=== PATIENT | female | born 1965 | race Caucasian/White ===

== ENCOUNTER 2021-11-06 06:59 | Outpatient (CLI) | payer BC, SELFPAY ==
--- NOTE | 2021-11-06 07:15 | US_ITS ---
Final Report Patient: ANTHONY ROSEN Facility:?[facility] Patient ID:?[id number] Site Patient ID:?[id number]. Site :?[id number] Study:?US Pelvis -11/06/2021 7:53:49 AM Ordering Physician:Delonte Morataya Final Report: INDICATION: Painful intercourse, history of endometrial ablation. TECHNIQUE: Ultrasound pelvis transvaginal for better assessment or to better visualize the endometrium. Real-time sonographic images with spectral and color Doppler imaging of the ovaries were obtained. COMPARISON: None. FINDINGS: Uterus: 6.1 x 5.0 x 3.3 cm. Normal echotexture of the myometrium. 1.3 x 1.5 x 1.5 cm posterior uterine fundal intramural mass. Endometrium: Transvaginal imaging was performed to better evaluate the endometrium. Endometrial thickness measures 4 mm. No sign of endometrial mass or fluid. Right ovary measures 1.1 x 1.2 x 1.0 cm. Left ovary is not visualized. No ovarian or adnexal masses. Normal blood flow in the right ovary. Cul-de-sac: No significant free fluid. IMPRESSION: 1. Endometrium measures 4 mm. 2. Left ovary is not visualized. No adnexal lesions. 3. Posterior fundal 1.5 cm intramural mass most likely leiomyoma. Dictated by Dustin Branch MD @ 11/06/2021 8:39:17 AM (Electronic Signature)
== END 2021-11-06 07:00 | disposition home or self-care (01) ==
LOC: US 07:01
PROVIDERS: PCP Family Medicine; Visit Provider Obstetrics & Gynecology
DX: N94.10 Unspecified dyspareunia (principal); R93.89 Abnormal findings on diagnostic imaging of other specified body structures; R19.00 Intra-abdominal and pelvic swelling, mass and lump, unspecified site
CPT/HCPCS: 76830; 76856

== ENCOUNTER 2021-12-26 08:04 | Outpatient (CLI) | payer BC, SELFPAY | END 2021-12-26 08:05 | disposition home or self-care (01) | LOC: OP CLINIC 08:05 | PROVIDERS: PCP Family Medicine; Visit Provider Surgery | DX: Z12.11 Encounter for screening for malignant neoplasm of colon (principal); K64.4 Residual hemorrhoidal skin tags; Z83.71 Family history of colonic polyps | CPT/HCPCS: 45378; 99153; J1200; J2250; J2405; J3010 ==

== ENCOUNTER 2021-12-27 10:49 | Outpatient (CLI) | payer BC, SELFPAY ==
--- NOTE | 2021-12-27 11:15 | CRLHL7_ITS ---
For Patients: As a result of the Century Cures Act, medical imaging exams and procedure reports are released immediately into your electronic medical record. You may view this report before your referring provider. If you have questions, please contact your health care provider. Technique: Double contrast barium enema performed in routine fashion. Fluoroscopy time 4 minutes 16 seconds.. Indication: Failed colonoscopy Comparison: None. Findings: Sigmoid diverticulosis with luminal narrowing. No stricture or obstruction. No mucosal irregularity or mass. Normal appearance of the right colon and transverse colon. Some redundancy of the splenic flexure incidentally identified. No fistula. No extravasation. Impression: Sigmoid diverticulosis. Remainder normal. Dictated by Eligio De Leon MD @ 12/27/2021 2:10:38 PM (Electronically Signed)
== END 2021-12-27 10:50 | disposition home or self-care (01) ==
PROVIDERS: PCP Family Medicine; Visit Provider Surgery
DX: Z12.11 Encounter for screening for malignant neoplasm of colon (principal); K57.30 Diverticulosis of large intestine without perforation or abscess without bleeding
CPT/HCPCS: 74280

== ENCOUNTER 2022-01-21 17:44 | Outpatient (CLI) | payer BC, SELFPAY ==
--- NOTE | 2022-01-21 18:00 | CRLHL7_ITS ---
For Patients: As a result of the Century Cures Act, medical imaging exams and procedure reports are released immediately into your electronic medical record. You may view this report before your referring provider. If you have questions, please contact your health care provider. BILATERAL SCREENING MAMMOGRAM WITH COMPUTER-AIDED DETECTION TECHNIQUE: CC and MLO views were obtained. These mammographic images have been obtained using full-field digital technique. These mammographic images were interpreted with the benefit of computer-aided detection. COMPARISON FILM: 09/08/19, 07/02/15. FINDINGS: The breasts are extremely dense, which lowers the sensitivity of mammography IMPRESSION: There is no radiographic evidence for malignancy. ASSESSMENT: BI-RADS Category 2: Benign RECOMMENDATION: Routine screening mammogram in 1 year. A lay language report of this examination will be provided to the patient. Eligio De Leon M.D. Diagnostic Radiologist [email or web address] SAURAV/Dictated by: Eligio De Leon MD @ 01/22/2022 8:21:00 AM (Electronically Signed)
== END 2022-01-21 17:45 | disposition home or self-care (01) ==
LOC: MAMMO 17:46
PROVIDERS: PCP Family Medicine; Visit Provider Registered Nurse
DX: Z12.31 Encounter for screening mammogram for malignant neoplasm of breast (principal); R92.2 Inconclusive mammogram
CPT/HCPCS: 77063; 77067

== ENCOUNTER 2022-06-29 13:33 | Emergency (ER) | payer BC, SELFPAY ==
[2022-06-29] VITALS (13 sets, daily range): BP systolic 139–175; BP diastolic 77–100; PULSE 64–72; RESP 18; TEMP 36.7; O2SAT 98–100; BMI 21.4
--- NOTE | 2022-06-29 14:45 | CRLHL7_ITS ---
For Patients: As a result of the Cures Act, medical imaging exams and procedure reports are released immediately into your electronic medical record. You may view this report before your referring provider. If you have questions, please contact your health care provider. Indication: Pain and throbbing in the skullbase and. TECHNIQUE: Three views of the cervical spine. FINDINGS: No cervical spine fracture, dislocation, or prevertebral soft tissue swelling. Mild spondylosis at C4-5 and C5-6. Slight diffuse facet arthrosis. Otherwise normal. Dictated by Christiano Krishna MD @ 06/29/2022 5:19:23 PM (Electronically Signed)
--- NOTE | 2022-06-29 14:46 | CRLHL7_ITS ---
For Patients: As a result of the Century Cures Act, medical imaging exams and procedure reports are released immediately into your electronic medical record. You may view this report before your referring provider. If you have questions, please contact your health care provider. INDICATION: Chest pain. TECHNIQUE: PA and lateral chest. COMPARISON: 06/21/2019. FINDINGS: Lungs are clear. Normal heart size and pulmonary vascularity. No pleural effusion. No pneumothorax. Right upper quadrant surgical clips. No change since prior exam. IMPRESSION: No acute chest findings. Dictated by Christiano Krishna MD @ 06/29/2022 5:20:21 PM (Electronically Signed)
--- NOTE | 2022-06-29 14:47 | CRLHL7_ITS ---
For Patients: As a result of the Century Cures Act, medical imaging exams and procedure reports are released immediately into your electronic medical record. You may view this report before your referring provider. If you have questions, please contact your health care provider. INDICATION: Headache TECHNIQUE: CT head without contrast. COMPARISON: None. FINDINGS: CSF spaces: Within normal limits for age. Brain parenchyma and extra-axial spaces: The barber-white differentiation is normal. No sign of mass, hemorrhage, or midline shift. No extra-axial fluid collection. Skull base and calvarium: The visualized paranasal sinuses and mastoid air cells demonstrate no acute or significant findings. The visualized orbits are grossly unremarkable. No skull fractures. IMPRESSION: Unremarkable noncontrast head CT. Please note that all CT scans at this facility use dose modulation, iterative reconstruction, and/or weight-based dosing when appropriate to reduce radiation dose to as low as reasonably achievable. Dictated by Christiano Krishna MD @ 06/29/2022 4:59:42 PM (Electronically Signed)
--- NOTE | 2022-06-29 14:57 | ED_ITS ---
HPI - Chest Pain General Date Seen: 06/29/22 Chief Complaint: Unspecified Complaint, Adult Stated Complaint: Feels like somethings stuck in throat dizzy Time Seen by Provider: 06/29/22 13:58 Source: patient Mode of arrival: ambulatory Limitations: no limitations History of Present Illness HPI narrative: Patient is a 57-year-old female presents here for evaluation of chest pain and back upper neck pain. She has had this on off for the last 3 days, describes pain across her chest, this occurs at rest but also when she moves around. She has not really been able to get any relief with this. This even wakes her from sleep at night, she saw cardiology this week, actually had a regular stress test which she went 9 minutes and stop because of some right knee discomfort she had. She denies any chest pain associated with this, shortness of breath, she works as a head of merchandise buying, and exercises it least 5 days a week. Running approximately 20 minutes on the treadmill. Along with at least 30 minutes twice daily of aerobic/weight lifting. No past personal history of cardiac disease although she feels she might have hypertension now as her blood pressure early systolic is always elevated here in the last little while. She has a terrible family history of multiple family members having heart attacks at an early age both her brother and her father. She thinks her cholesterol is elevated also. She denies a problems swallowing says she is able eat and drink normally. No history of diabetes no history of smoking, no history of drug use or alcohol use. MD complaint: chest pain and chest heaviness Prior episodes: Yes Onset: during rest and during exertion Pain location: left chest and right chest Pain radiation: back and neck Severity: moderate Quality: tightness Treatment prior to arrival: none Risk Factors Coronary artery disease risk factors: hypertension and family history of CAD before age 50 Related Data On Oral Contraceptives: No Home Medications Medication Instructions Recorded Confirmed No Known Home Medications 06/29/22 06/29/22 Allergies Allergy/AdvReac Type Severity Reaction Status Date / Time rivaroxaban Allergy Severe Multiple Verified 06/29/22 14:18 reactions cortisone Allergy Intermediate Heart Verified 06/29/22 14:18 palpitations, bp drop aspirin Allergy Mild Rash Verified 06/29/22 14:18 Sulfa (Sulfonamide Allergy Mild Hives Verified 06/29/22 14:18 Antibiotics) Review of Systems Status of ROS Reports: 10 or more systems reviewed and unremarkable except as noted in History and below PFSH PFSH Surgical History History of appendectomy (1996) History of cholecystectomy (1991) History of rotator cuff surgery Status post carpal tunnel release Status post trigger finger release Family History Other MCTD (mixed connective tissue disease) Social History Smoking Status: Never smoker How often do you have a drink containing alcohol: 4 or more times a week AUDIT-C Alcohol total score: 4 Non-prescribed substance use: denies use Exam Narrative Exam Narrative: I find a nice lady in room 2 as just a little bit of pressured speech, her pupils are equal round reactive to light there is no scleral icterus redness or TMs are normal, her neck has excellent range of motion from within 4 cm to 22 cm, however in full extension she complains of pain in her neck, specifically along the paraspinal muscles along spinous processes in the mid cervical so spine. Chest is good air entry bilaterally with no wheezing crackles noted her heart sounds are normal there is no clicks murmurs or gallops her abdomen is soft there is no guarding no organomegaly, no tenderness to palpation no CVA tenderness she moves all extremities independently and well, with absence of swelling of her legs, scar on her right elbow from previous ulnar transposition, she also tells me she had a blood clot in her right arm. Const Vital Signs, click to edit/add: Vital Signs - 24 hr 06/29/22 14:15 06/29/22 15:54 06/29/22 15:29 Temperature 98.0 F Pulse Rate 68 Pulse Rate [Right Pulse Oximeter] 72 69 Respiratory Rate 18 18 Blood Pressure Blood Pressure [Left Upper Arm] 175/100 H 156/89 H Pulse Oximetry 99 100 100 Oxygen Delivery Method Room Air Room Air 06/29/22 15:30 06/29/22 15:53 06/29/22 16:00 Temperature Pulse Rate 66 68 67 Pulse Rate [Right Pulse Oximeter] Respiratory Rate Blood Pressure 156/89 H Blood Pressure [Left Upper Arm] Pulse Oximetry 99 98 100 Oxygen Delivery Method 06/29/22 16:02 06/29/22 16:03 06/29/22 16:30 Temperature Pulse Rate 64 69 70 Pulse Rate [Right Pulse Oximeter] Respiratory Rate Blood Pressure 139/79 Blood Pressure [Left Upper Arm] Pulse Oximetry 99 99 99 Oxygen Delivery Method 06/29/22 16:32 06/29/22 16:33 06/29/22 17:12 Temperature Pulse Rate 70 69 69 Pulse Rate [Right Pulse Oximeter] Respiratory Rate Blood Pressure 141/77 H Blood Pressure [Left Upper Arm] Pulse Oximetry 100 99 99 Oxygen Delivery Method 06/29/22 17:13 Temperature Pulse Rate 64 Pulse Rate [Right Pulse Oximeter] Respiratory Rate Blood Pressure 145/82 H Blood Pressure [Left Upper Arm] Pulse Oximetry 100 Oxygen Delivery Method Documenting provider has reviewed patient's vital signs: yes Course Course Hospital Course: I went back in and talked to the patient head CT is normal, her cervical spine does not show significant arthritic changes normal her discs seem all normal. Her pain does seem to be more in her back of her neck it is almost sounds like myofascial in nature. This could be causing her headache for sure. For her chest pain I am reassured with a normal D-dimer and troponin, she has already had a normal stress test, and they are going to do the echo portion and follow- up with cardiology. Given her level of exercise she definitely does not have a flow-limiting lesion for sure. And the chest x-ray looked normal with normal aortic root. I think a reasonable option here would be take Tylenol 1 g p.o. b.i.d.. Follow-up with primary care rheumatology as she had already has an arrangement with that. For further workup. Return here if worsening chest discomfort, but I also reviewed the I did a normal stress echo on her in 2019 Vital Signs Vital signs: Initial Vital Signs Temperature 98.0 F 06/29/22 14:15 Temperature Source Temporal Artery Scan 06/29/22 14:15 Pulse Rate 72 06/29/22 14:15 Respiratory Rate 18 06/29/22 14:15 Blood Pressure 175/100 H 06/29/22 14:15 Blood Pressure Mean 125 06/29/22 14:15 Blood Pressure Position Sitting 06/29/22 14:15 Pulse Oximetry 99 06/29/22 14:15 Oxygen Delivery Method 06/29/22 14:15 Vital Signs Temperature 98.0 F 06/29/22 14:15 Pulse Rate 72 06/29/22 14:15 Respiratory Rate 18 06/29/22 14:15 Blood Pressure 175/100 H 06/29/22 14:15 Pulse Oximetry 99 06/29/22 14:15 Oxygen Delivery Method 06/29/22 14:15 Temperature 98.0 F 06/29/22 14:15 Pulse Rate 64 06/29/22 17:13 Respiratory Rate 18 06/29/22 15:54 Blood Pressure 145/82 H 06/29/22 17:13 Pulse Oximetry 100 06/29/22 17:13 Oxygen Delivery Method 06/29/22 15:54 MDM - Chest Pain MDM Narrative Medical decision making narrative: During the evaluation of this patient I considered multiple differential diagnosis is. The life-threatening differential diagnosis include coronary disease/NC, pulmonary embolism, pneumothorax, pneumonia, and aortic dissection. Other differential diagnosis included but were not limited to pericarditis, myocarditis, chest wall pain, GERD, esophageal rupture, rib fracture contusion, pleurisy, as well as other etiologies. She also has neck pain, I wonder if this is more from facet joints, she is worried about a stroke, and we will do a CTA of her head neck, I will wait and on the D-dimer the D-dimer is positive we will add in a PE study. Medical Records Data Attestation: I reviewed the patient's medical records. Medical records narrative: Reviewed records, from [place] and also here, she had normal stress echo, to 8 minutes in 2019, regular stress test done to 9 minutes, last week. And Cardiology consult from 06/19/2022. Lab Data Attestation: I reviewed the patient's lab results. Labs: Lab Results 06/29/22 06/29/22 06/29/22 Range/Units 15:00 15:05 15:05 WBC 5.34 (4.50-11.00) K/uL RBC 5.03 (4.00-5.20) m/uL Hgb 15.5 (12.0-16.0) gm/dL Hct 45.2 (33.0-51.0) % MCV 90 (80-100) fL MCH 31 (26-34) pg MCHC 34 (32-36) gm/dL RDW Coeff of Dionna 12.0 (11.5-15.5) % Plt Count 255 (140-440) K/uL Neut % (Auto) 56.3 (42.0-72.0) % Lymph % (Auto) 33.0 (20-44) % [place] % (Auto) 5.6 (0.0-11.0) % Eos % (Auto) 4.1 (0.0-7.0) % Baso % (Auto) 0.6 (0.0-3.0) % Neut # (Auto) 3.01 (1.7-7.0) K/uL Lymph # (Auto) 1.76 (0.90-2.90) K/uL [place] # (Auto) 0.30 (0.00-0.90) K/UL Eos # (Auto) 0.22 (0.00-0.50) K/uL Baso # (Auto) 0.03 (0.00-0.30) K/uL D-Dimer Quant (PE/DVT) (0.00-0.50) ug/ml Sodium 142 (135-149) mmol/L Potassium 3.8 (3.6-5.1) mmol/L Chloride 103 (96-114) mmol/L Carbon Dioxide 29 (20-32) mmol/L BUN 15 (7-30) mg/dL Creatinine 0.7 (0.5-1.5) mg/dL Estimated Creat Clear 93.18 Estimated GFR 101 ml/min Glucose 93 (60-115) mg/dL Calcium 9.9 (8.4-10.6) mg/dL NT-Pro-B Natriuret Pep pg/mL SARS-CoV-2 (PCR) Negative SARS-CoV-2 (Negative) Influenza Type A (PCR) Negative PCR FLU A (Negative) Influenza Type B (PCR) Negative PCR FLU B (Negative) RSV (PCR) Negative PCR RSV (Negative) POC Troponin I (0.01-0.04) ng/ml 06/29/22 06/29/22 06/29/22 Range/Units 15:05 15:05 15:05 WBC (4.50-11.00) K/uL RBC (4.00-5.20) m/uL Hgb (12.0-16.0) gm/dL Hct (33.0-51.0) % MCV (80-100) fL MCH (26-34) pg MCHC (32-36) gm/dL RDW Coeff of Dionna (11.5-15.5) % Plt Count (140-440) K/uL Neut % (Auto) (42.0-72.0) % Lymph % (Auto) (20-44) % [place] % (Auto) (0.0-11.0) % Eos % (Auto) (0.0-7.0) % Baso % (Auto) (0.0-3.0) % Neut # (Auto) (1.7-7.0) K/uL Lymph # (Auto) (0.90-2.90) K/uL [place] # (Auto) (0.00-0.90) K/UL Eos # (Auto) (0.00-0.50) K/uL Baso # (Auto) (0.00-0.30) K/uL D-Dimer Quant (PE/DVT) 0.32 (0.00-0.50) ug/ml Sodium (135-149) mmol/L Potassium (3.6-5.1) mmol/L Chloride (96-114) mmol/L Carbon Dioxide (20-32) mmol/L BUN (7-30) mg/dL Creatinine (0.5-1.5) mg/dL Estimated Creat Clear Estimated GFR ml/min Glucose (60-115) mg/dL Calcium (8.4-10.6) mg/dL NT-Pro-B Natriuret Pep 50 pg/mL SARS-CoV-2 (PCR) (Negative) Influenza Type A (PCR) (Negative) Influenza Type B (PCR) (Negative) RSV (PCR) (Negative) POC Troponin I 0.00 L (0.01-0.04) ng/ml Imaging Data CT scan - head: Attestation: I have reviewed the pertinent imaging results. My impression: No acute change radiology impression pending, I also reviewed cervical spine two view, and chest two view, I do not see anything acutely with either these also. ECG Data Attestation: I personally reviewed and interpreted this ECG as follows: ECG interpretation date: 06/29/22 Prior ECG tracings: available for review Interpretation: EKG shows normal sinus rhythm, no acute ST wave changes, normal QRS QT intervals, when compared to previous EKGs normal. Discharge Plan Discharge Clinical Impression: Headache, Neck pain, Chest pain Patient Disposition: Home, Self-Care Condition: Stable Instructions: Chest Pain (DC), Tension Headache (ED), Acute Headache (ED), Acute Neck Pain (ED) Additional Instructions: I think a reasonable approach here would be reassurance, follow-up with cardiology is no patient consider rheumatology follow-up, Tylenol 1 g p.o. b.i.d., return worsening signs and symptoms but everything on testing looks good today I do not see any evidence of a stroke here. Prescriptions: No Action No Known Home Medications Follow Up/Referrals: Eligio Fuchs MD [Primary Care Provider] - Stand Alone Forms: [employer] Info Instructions
[2022-06-29] MEDS: 0.9 % SODIUM CHLORIDE 1000 ml 1,000 ML IV (15:10)
[2022-06-29 15:38] LABS: Chloride* 103 mmol/L (96-114); Sodium* 142 mmol/L (135-149)
[2022-06-29 15:39] LABS: Potassium* 3.8 mmol/L (3.6-5.1)
[2022-06-29 15:41] LABS: Blood Urea Nitrogen* 15 mg/dL (7-30); Carbon Dioxide* 29 mmol/L (20-32); Creatinine* 0.7 mg/dL (0.5-1.5); Est. Creatinine Clearance* 93.18; Estimated Glomerular Filt Rate 101 ml/min
[2022-06-29 15:42] LABS: Basophils Absolute Auto 0.03 K/uL (0.00-0.30); Basophils Percent Auto 0.6 % (0.0-3.0); Calcium* 9.9 mg/dL (8.4-10.6); Eosinophils Absolute Auto 0.22 K/uL (0.00-0.50); Eosinophils Percent Auto 4.1 % (0.0-7.0); Glucose* 93 mg/dL (60-115); Hematocrit 45.2 % (33.0-51.0); Hemoglobin* 15.5 gm/dL (12.0-16.0); Immature Granulocytes Abs Auto 0.02 K/uL (0.00-0.30); Immature Granulocytes Pct Auto 0.4 %; Lymphocytes Absolute Auto 1.76 K/uL (0.90-2.90); Mean Corpuscular HGB Conc 34 gm/dL (32-36); Mean Corpuscular Hemoglobin 31 pg (26-34); Mean Corpuscular Volume 90 fL (80-100); Monocytes Percent Auto 5.6 % (0.0-11.0); Neutrophils Absolute Auto 3.01 K/uL (1.7-7.0); Neutrophils Percent Auto 56.3 % (42.0-72.0); Platelet Count* 255 K/uL (140-440); Red Blood Count 5.03 m/uL (4.00-5.20); White Blood Count* 5.34 K/uL (4.50-11.00)
[2022-06-29 15:43] LABS: Slide Review Reflex No
[2022-06-29 15:59] LABS: NT Pro B Type NatriureticPept* 50 pg/mL
[2022-06-29 16:05] LABS: PCR FLU A Negative PCR FLU A (Negative); PCR FLU B Negative PCR FLU B (Negative); PCR RSV Negative PCR RSV (Negative)
[2022-06-29 16:11] LABS: SARS PCR* Negative SARS-CoV-2 (Negative)
[2022-06-29 16:15] LABS: D Dimer Quantitative* 0.32 ug/ml (0.00-0.50)
== END 2022-06-29 17:38 | disposition home or self-care (01) ==
PROVIDERS: Emergency Provider Family Medicine; PCP Family Medicine
DX: R07.9 Chest pain, unspecified (principal); M54.2 Cervicalgia; R51.9 Headache, unspecified
CPT/HCPCS: 36415; 70450; 71046; 72040; 80048; 83880; 84484; 85025; 85379; 87502; 87634; 87635; 93005; 99284; 99285; J7030

== ENCOUNTER 2023-06-16 23:06 | Emergency (ER) | payer BC, SELFPAY ==
[2023-06-16 23:15] VITALS: BP 132/86; PULSE 75; RESP 22; TEMP 36.5; O2SAT 98
--- NOTE | 2023-06-16 23:46 | ED.GENADULT ---
HPI - General Adult General Date Seen: 06/16/23 <Felisha Jauregui MD - Last Filed: 06/22/23 22:16> Chief complaint: Abdominal Pain <Felisha Jauregui MD - Last Filed: 06/22/23 22:16> Stated complaint: Abdominal Pain <Felisha Jauregui MD - Last Filed: 06/22/23 22:16> Time Seen by Provider: 06/16/23 23:45 <Felisha Jauregui MD - Last Filed: 06/22/23 22:16> Source: patient, family, RN notes reviewed and old records reviewed <Felisha Jauregui MD - Last Filed: 06/22/23 22:16> Mode of arrival: ambulatory <Felisha Jauregui MD - Last Filed: 06/22/23 22:16> Limitations: no limitations <Felisha Jauregui MD - Last Filed: 06/22/23 22:16> History of Present Illness HPI narrative: Patient is a 58-year-old woman who presents for evaluation of epigastric pain which has been present on and off she says for about 6 months. She says it is always in the evening that it bothers her, usually after dinner. She does not eat much for breakfast or lunch and has her main meal at dinner time. Initially it was fairly episodic, but more recently it has been happening frequently. She specifically denies any exertional symptoms, she did have a stress test a year ago which was normal. Has hypertension but no other cardiac risk factors. She has not tried any GI medications such as Prilosec, Pepcid, Maalox. She says usually she will just drink a lot of water and then eventually goes away. Sometimes it lasts up to 45 minutes. She says it feels just like when she had gallbladder problems in the , but her gallbladder has been surgically removed. She does note that she had colonoscopy a couple of years ago was noted to have a redundant colon, her son had to have a partial colectomy secondary to what sounds like perhaps volvulus. She has wondered if maybe she could have the same thing. She has not had any problems with nausea or vomiting, she feels like it might feel better if she could throw up but she does not. She has not had any black or bloody stools. Pain is not particularly positional, she feels best lying on her side, but notes that she has to move around a lot due to discomfort. Sometime she breaks out in a sweat when it is particularly severe. She has taken nonsteroidals in the form of ibuprofen for years due to hip pain. She says that she has weaned down to taking only 1 a day but she used to take ?a lot. She drinks wine occasionally but says she does not drink significantly. She does not smoke. Here tonight with her . <Felisha Jauregui MD - Last Filed: 06/22/23 22:16> Related Data Home medications: Home Medications Medication Instructions Recorded Confirmed amlodipine 5 mg tablet 5 mg PO DAILY 06/16/23 06/20/23 Previous Rx's Medication Instructions Recorded omeprazole 20 mg capsule,delayed 20 mg PO DAILY #60 caps 06/17/23 release doxycycline hyclate 100 mg tablet 100 mg PO BID 10 days #20 tabs 06/20/23 <Felisha Jauregui MD - Last Filed: 06/22/23 22:16> Allergies/adverse reactions: Allergies Allergy/AdvReac Type Severity Reaction Status Date / Time rivaroxaban Allergy Severe Multiple Verified 06/20/23 08:53 reactions cortisone Allergy Intermediate Heart Verified 06/20/23 08:53 palpitations, bp drop aspirin Allergy Mild Rash Verified 06/20/23 08:53 Sulfa (Sulfonamide Allergy Mild Hives Verified 06/20/23 08:53 Antibiotics) <Felisha Jauregui MD - Last Filed: 06/22/23 22:16> Review of Systems Status of ROS: Reports: 10 or more systems reviewed and unremarkable except as noted in History and below <Felisha Jauregui MD - Last Filed: 06/22/23 22:16> [facility] Medical History: Medical History (Updated 06/17/23 @ 01:05 by Dorie Cowart MD) Benign essential HTN ?I10 - Essential (primary) hypertension (ICD-10) Symptomatic PVCs ?I49.3 - Ventricular premature depolarization (ICD-10) Raynaud disease ?I73.00 - Raynaud's syndrome without gangrene (ICD-10) <Felisha Jauregui MD - Last Filed: 06/22/23 22:16> Surgical History: Surgical History Status post trigger finger release ?Z98.890 - Other specified postprocedural states (ICD-10) Status post carpal tunnel release ?Z98.890 - Other specified postprocedural states (ICD-10) History of rotator cuff surgery ?Z98.890 - Other specified postprocedural states (ICD-10) History of cholecystectomy (1991) ?Z90.49 - Acquired absence of other specified parts of digestive tract (ICD-10) History of appendectomy (1996) ?Z90.49 - Acquired absence of other specified parts of digestive tract (ICD-10) <Felisha Jauregui MD - Last Filed: 06/22/23 22:16> Family History: Family History Other MCTD (mixed connective tissue disease) <Felisha Jauregui MD - Last Filed: 06/22/23 22:16> Social History: Social History Smoking Status: Never smoker How often do you have a drink containing alcohol: 4 or more times a week AUDIT-C Alcohol total score: 4 Non-prescribed substance use: denies use <Felisha Jauregui MD - Last Filed: 06/22/23 22:16> Exam Narrative: Exam Narrative: Vital signs as noted above. In general, an alert, nontoxic woman. She looks somewhat uncomfortable, she is lying in a position on her left side with a pillow over her stomach. Head: Normocephalic, atraumatic. Eyes: Pupils are equal reactive. Extraocular movements are full. Conjunctivae are normal. No scleral icterus. ENT: Mucous membranes are moist. Delete Neck: Supple without lymphadenopathy. Heart: Regular rate and rhythm. No murmur or rub. Lungs: Clear bilaterally. No increased work of breathing, crackles or wheezes. Abdomen: Abdomen is soft and nondistended. She has some isolated epigastric tenderness without rebound guarding or rigidity. Lower abdomen is nontender to palpation. Bowel sounds are present. Extremities: Well perfused. No edema. No calf tenderness. Pulses intact. Neurologic: Patient is alert and oriented to person and place. Speech is fluent. Face is symmetric. Moves all extremities equally. Affect: Normal. Skin: Warm and dry. Well perfused. <Felisha Jauregui MD - Last Filed: 06/22/23 22:16> Const: Vital Signs, click to edit/add: Vital Signs - 24 hr 06/16/23 23:15 Temperature 97.7 F Pulse Rate [Left P ulse Oximeter] 75 Respiratory Rate 22 Blood Pressure [Ri ght Upper Arm] 132/86 Pulse Oximetry 98 Oxygen Delivery Me thod Room Air <Felisha Jauregui MD - Last Filed: 06/22/23 22:16> Vital Signs, click to edit/add: Vital Signs - 24 hr 06/16/23 23:15 Temperature 97.7 F Pulse Rate [Left P ulse Oximeter] 75 Respiratory Rate 22 Blood Pressure [Ri ght Upper Arm] 132/86 Pulse Oximetry 98 Oxygen Delivery Me thod Room Air <Dorie Cowart MD - Last Filed: 06/17/23 01:10> Documenting provider has reviewed patient's vital signs: yes <Felisha Jauregui MD - Last Filed: 06/22/23 22:16> Course Course ED Course: Diagnostic considerations include gastritis or peptic ulcer disease, perforation, pancreatitis, volvulus, colitis, inflammatory bowel disease, choledocholithiasis, angina among others. Plan at this time will be to treat with pain medication pending evaluation with lab and CT. Advised her that there may be a component of this that needs to happen as an outpatient as well, if all workup here is normal then I would recommend treatment with a PPI and outpatient follow-up. Endoscopy might be considered 1 week as well. Her initial troponin is 0, EKG by my review on arrival shows a sinus rhythm, ventricular rate of 72. No ST segment changes, normal T-waves. Overall my suspicion of a cardiac etiology for her pain is relatively low. She had a stress test last year that was normal, she is very active without symptoms, and the pattern of symptoms is certainly not suggestive of a cardiac etiology. <Felisha Jauregui MD - Last Filed: 06/22/23 22:16> Reevaluation(s) Time of Reevaluation #1: 01:09 <Dorie Cowart MD - Last Filed: 06/17/23 01:10> Reevaluation #1: Discussed findings with patient and significant other. Mild constipation but more likely symptoms are related to chronic gastritis from NSAIDs, possibly alcohol, age and other factors. Recommended 6 weeks of omeprazole. Primary care follow-up in 3-4 weeks. If still having persistent symptoms, would recommend H pylori testing, celiac testing and a recheck of liver enzymes. Encouraged alcohol abstinence for the next couple of weeks, cutting down on NSAIDs. Tylenol is okay to use for acute pain. Alarm symptoms reviewed. All questions answered. <Dorie Cowart MD - Last Filed: 06/17/23 01:10> Vital Signs Vital signs: Initial Vital Signs Temperature 97.7 F 06/16/23 23:15 Temperature Source Temporal Artery Scan 06/16/23 23:15 Pulse Rate 75 06/16/23 23:15 Pulse Rhythm Regular 06/16/23 23:15 Respiratory Rate 22 06/16/23 23:15 Blood Pressure 132/86 06/16/23 23:15 Blood Pressure Mean 101 06/16/23 23:15 Blood Pressure Position Sitting 06/16/23 23:15 Pulse Oximetry 98 06/16/23 23:15 Oxygen Delivery Method Room Air 06/16/23 23:15 Vital Signs Temperature 97.7 F 06/16/23 23:15 Pulse Rate 75 06/16/23 23:15 Respiratory Rate 22 06/16/23 23:15 Blood Pressure 132/86 06/16/23 23:15 Pulse Oximetry 98 06/16/23 23:15 Oxygen Delivery Method Room Air 06/16/23 23:15 Temperature 97.7 F 06/16/23 23:15 Pulse Rate 75 06/16/23 23:15 Respiratory Rate 22 06/16/23 23:15 Blood Pressure 132/86 06/16/23 23:15 Pulse Oximetry 98 06/16/23 23:15 Oxygen Delivery Method Room Air 06/16/23 23:15 <Felisha Jauregui MD - Last Filed: 06/22/23 22:16> Initial Vital Signs Temperature 97.7 F 06/16/23 23:15 Temperature Source Temporal Artery Scan 06/16/23 23:15 Pulse Rate 75 06/16/23 23:15 Pulse Rhythm Regular 06/16/23 23:15 Respiratory Rate 22 06/16/23 23:15 Blood Pressure 132/86 06/16/23 23:15 Blood Pressure Mean 101 06/16/23 23:15 Blood Pressure Position Sitting 06/16/23 23:15 Pulse Oximetry 98 06/16/23 23:15 Oxygen Delivery Method Room Air 06/16/23 23:15 Vital Signs Temperature 97.7 F 06/16/23 23:15 Pulse Rate 75 06/16/23 23:15 Respiratory Rate 22 06/16/23 23:15 Blood Pressure 132/86 06/16/23 23:15 Pulse Oximetry 98 06/16/23 23:15 Oxygen Delivery Method Room Air 06/16/23 23:15 Temperature 97.7 F 06/16/23 23:15 Pulse Rate 75 06/16/23 23:15 Respiratory Rate 22 06/16/23 23:15 Blood Pressure 132/86 06/16/23 23:15 Pulse Oximetry 98 06/16/23 23:15 Oxygen Delivery Method Room Air 06/16/23 23:15 <Dorie Cowart MD - Last Filed: 06/17/23 01:10> Medications Administered Medications: Discontinued Medications Generic Name Dose Route Start Last Admin Trade Name Freq PRN Reason Stop Dose Admin Morphine Sulfate 4 mg 06/16/23 23:53 06/17/23 01:09 Morphine 4 Mg/Ml Inj IVP 06/16/23 23:54 Not Given ONCE ONE Omeprazole 20 mg 06/17/23 01:05 06/17/23 01:16 Omeprazole [address] PO 06/17/23 01:06 20 mg ONCE ONE Administration Ondansetron HCl 4 mg 06/16/23 23:54 06/17/23 01:09 Ondansetron 2 Mg/Ml Inj IVP 06/16/23 23:55 Not Given ONCE ONE <Felisha Jauregui MD - Last Filed: 06/22/23 22:16> Discontinued Medications Generic Name Dose Route Start Last Admin Trade Name Freq PRN Reason Stop Dose Admin Morphine Sulfate 4 mg 06/16/23 23:53 06/17/23 01:09 Morphine 4 Mg/Ml Inj IVP 06/16/23 23:54 Not Given ONCE ONE Omeprazole 20 mg 06/17/23 01:05 06/17/23 01:16 Omeprazole [address] PO 06/17/23 01:06 20 mg ONCE ONE Administration Ondansetron HCl 4 mg 06/16/23 23:54 06/17/23 01:09 Ondansetron 2 Mg/Ml Inj IVP 06/16/23 23:55 Not Given ONCE ONE <Dorie Cowart MD - Last Filed: 06/17/23 01:10> Medical Decision Making Lab Data Lab results reviewed: Yes I reviewed the patient's lab results <Dorie Cowart MD - Last Filed: 06/17/23 01:10> Lab results narrative: Reassuring. <Dorie Cowart MD - Last Filed: 06/17/23 01:10> Labs: Lab Results 06/16/23 06/16/23 Range/Units 23:25 23:54 WBC 4.44 L (4.50-11.00) K/uL RBC 4.44 (4.00-5.20) m/uL Hgb 13.7 (12.0-16.0) gm/dL Hct 39.8 (33.0-51.0) % MCV 90 (80-100) fL MCH 31 (26-34) pg MCHC 34 (32-36) gm/dL RDW Coeff of Dionna 11.8 (11.5-15.5) % Plt Count 200 (140-440) K/uL Neut % (Auto) 58.9 (42.0-72.0) % Lymph % (Auto) 26.1 (20-44) % [place] % (Auto) 8.6 (0.0-11.0) % Eos % (Auto) 5.4 (0.0-7.0) % Baso % (Auto) 0.5 (0.0-3.0) % Neut # (Auto) 2.60 (1.7-7.0) K/uL Lymph # (Auto) 1.20 (0.90-2.90) K/uL [place] # (Auto) 0.40 (0.00-0.90) K/UL Eos # (Auto) 0.20 (0.00-0.50) K/uL Baso # (Auto) 0.00 (0.00-0.30) K/uL Abs Immat Gran (auto) 0.00 (0.00-0.30) K/uL Imm/Tot Granulo (auto) 0.5 % Sodium 139 (135-149) mmol/L Potassium 4.0 (3.6-5.1) mmol/L Chloride 103 (96-114) mmol/L Carbon Dioxide 23 (20-32) mmol/L Anion Gap 13 (7-15) mEq/L BUN 14 (7-30) mg/dL Creatinine 0.6 (0.5-1.5) mg/dL Estimated GFR 105 ml/min Glucose 111 (60-115) mg/dL Lactate 1.4 (0.5-1.9) mmol/L Calcium 9.6 (8.4-10.6) mg/dL Total Bilirubin 0.5 (0.1-1.5) mg/dL Direct Bilirubin 0.2 (0.0-0.5) mg/dL AST 257 H (12-35) U/L ALT 119 H (4-35) U/L Alkaline Phosphatase 67 (40-150) U/L C-Reactive Protein 0.5 (0.5-1.0) mg/dL Total Protein 8.6 H (6.0-8.3) g/dL Albumin 5.4 H (3.3-5.0) g/dL Lipase 73 (23-300) U/L POC Troponin I 0.00 L (0.01-0.04) ng/ml <Felisha Jauregui MD - Last Filed: 06/22/23 22:16> Lab Results 06/16/23 06/16/23 Range/Units 23:25 23:54 WBC 4.44 L (4.50-11.00) K/uL RBC 4.44 (4.00-5.20) m/uL Hgb 13.7 (12.0-16.0) gm/dL Hct 39.8 (33.0-51.0) % MCV 90 (80-100) fL MCH 31 (26-34) pg MCHC 34 (32-36) gm/dL RDW Coeff of Dionna 11.8 (11.5-15.5) % Plt Count 200 (140-440) K/uL Neut % (Auto) 58.9 (42.0-72.0) % Lymph % (Auto) 26.1 (20-44) % [place] % (Auto) 8.6 (0.0-11.0) % Eos % (Auto) 5.4 (0.0-7.0) % Baso % (Auto) 0.5 (0.0-3.0) % Neut # (Auto) 2.60 (1.7-7.0) K/uL Lymph # (Auto) 1.20 (0.90-2.90) K/uL [place] # (Auto) 0.40 (0.00-0.90) K/UL Eos # (Auto) 0.20 (0.00-0.50) K/uL Baso # (Auto) 0.00 (0.00-0.30) K/uL Abs Immat Gran (auto) 0.00 (0.00-0.30) K/uL Imm/Tot Granulo (auto) 0.5 % Sodium 139 (135-149) mmol/L Potassium 4.0 (3.6-5.1) mmol/L Chloride 103 (96-114) mmol/L Carbon Dioxide 23 (20-32) mmol/L Anion Gap 13 (7-15) mEq/L BUN 14 (7-30) mg/dL Creatinine 0.6 (0.5-1.5) mg/dL Estimated GFR 105 ml/min Glucose 111 (60-115) mg/dL Lactate 1.4 (0.5-1.9) mmol/L Calcium 9.6 (8.4-10.6) mg/dL Total Bilirubin 0.5 (0.1-1.5) mg/dL Direct Bilirubin 0.2 (0.0-0.5) mg/dL AST 257 H (12-35) U/L ALT 119 H (4-35) U/L Alkaline Phosphatase 67 (40-150) U/L C-Reactive Protein 0.5 (0.5-1.0) mg/dL Total Protein 8.6 H (6.0-8.3) g/dL Albumin 5.4 H (3.3-5.0) g/dL Lipase 73 (23-300) U/L POC Troponin I 0.00 L (0.01-0.04) ng/ml <Dorie Cowart MD - Last Filed: 06/17/23 01:10> Imaging Data CT scan - abdomen: Attestation: I have reviewed the pertinent imaging results. <Dorie Cowart MD - Last Filed: 06/17/23 01:10> My impression: To patient. No signs of free air, volvulus, bowel obstruction or other significant inflammation. <Dorie Cowart MD - Last Filed: 06/17/23 01:10> Radiologist's impression: IMPRESSION: 1. No acute abdominal or pelvic abnormality. 2. Large colonic stool load. <Dorie Cowart MD - Last Filed: 06/17/23 01:10> Discharge Plan Discharge Clinical Impression: Gastritis <Felisha Jauregui MD - Last Filed: 06/22/23 22:16> Patient Disposition: Home w/ Parent or Adult <Felisha Jauregui MD - Last Filed: 06/22/23 22:16> Instructions: Diet for Stomach Ulcers and Gastritis (ED) <Felisha Jauregui MD - Last Filed: 06/22/23 22:16> Additional Instructions: As we discussed, I suspect your pain is from chronic stomach irritation. This can be from a combination of dietary choices, age and other factors. But often, alcohol and anti-inflammatory medications like ibuprofen and Aleve are also factors. I would like to start you on a medication called omeprazole. This is a common stomach acid suppressing medicine. By suppressing the acid, we give the lining of the stomach a better chance to heal. We recommend taking this medication for 6 weeks. Would like for you to make a follow-up appointment with a primary care provider in about 3-4 weeks. At that time, if your symptoms are not starting to improve, I would recommend that they do additional testing for H pylori infection, celiac disease, and that they recheck your liver enzymes to see if there are any signs that alcohol could be affecting your liver. They may also recommend a referral for an endoscopy. If you start having persistently bloody stools and or severe pain, he should come back to emergency department. The CT scan does show some mild constipation but I do not think that this is the main source of your pain. Consider taking a stool softener daily for the next few days and then a couple of times per week thereafter to help clean out your system. <Felisha Jauregui MD - Last Filed: 06/22/23 22:16> Activity Level: Activity as Tolerated <Felisha Jauregui MD - Last Filed: 06/22/23 22:16> Activity as Tolerated <Dorie Cowart MD - Last Filed: 06/17/23 01:10> Discharge Diet: Regular <Felisha Jauregui MD - Last Filed: 06/22/23 22:16> Regular <Dorie Cowart MD - Last Filed: 06/17/23 01:10> Diet Detail: No alcohol for at least the next 2 weeks. <Felisha Jauregui MD - Last Filed: 06/22/23 22:16> No alcohol for at least the next 2 weeks. <Dorie Cowart MD - Last Filed: 06/17/23 01:10> Prescriptions: New omeprazole 20 mg capsule,delayed release(DR/EC) 20 mg PO DAILY Qty: 60 1RF No Action doxycycline hyclate 100 mg tablet 100 mg PO BID 10 Days Qty: 20 0RF amlodipine 5 mg tablet 5 mg PO DAILY <Felisha Jauregui MD - Last Filed: 06/22/23 22:16> Follow Up/Referrals: Eligio Fuchs MD [Primary Care Provider] - <Felisha Jauregui MD - Last Filed: 06/22/23 22:16> Stand Alone Forms: MyHealth Info Instructions <Felisha Jauregui MD - Last Filed: 06/22/23 22:16>
--- NOTE | 2023-06-16 23:53 | CRLHL7_ITS ---
For Patients: As a result of the Century Cures Act, medical imaging exams and procedure reports are released immediately into your electronic medical record. You may view this report before your referring provider. If you have questions, please contact your health care provider. INDICATION: Episodic upper abdominal pain. TECHNIQUE: CT abdomen and pelvis acquired with 71 cc Isovue 370 IV contrast. COMPARISON: None. FINDINGS: Lower chest: Unremarkable. Liver: Hemangioma in the left hepatic lobe. Gallbladder and bile ducts: Mildly prominent bile ducts, likely secondary to post cholecystectomy state. Spleen: Unremarkable. Normal in size. No masses. Adrenal glands: Unremarkable. No nodules. Pancreas: Unremarkable. No mass or inflammation. Kidneys: Unremarkable. No suspicious masses, stones, or hydronephrosis. GI tract: Large colonic stool load. No evidence of obstruction. Appendix is not well visualized, however there is no evidence of right lower quadrant inflammatory stranding. Lymph nodes: No lymphadenopathy. Vasculature: Unremarkable. Omentum/Peritoneum/Abdominal Wall: Unremarkable. No free air or significant free fluid. Pelvis: Unremarkable. Bones: Unremarkable for age. IMPRESSION: 1. No acute abdominal or pelvic abnormality. 2. Large colonic stool load. Please note that all CT scans at this facility use dose modulation, iterative reconstruction, and/or weight-based dosing when appropriate to reduce radiation dose to as low as reasonably achievable. Dictated by Obed Lennon MD @ 06/17/2023 12:58:22 AM (Electronically Signed)
--- NOTE | 2023-06-17 00:05 | ED.NURSE ---
patient states that she is not nauseated and the pain is going away. meds returned to [facility].
[2023-06-17 00:11] LABS: Lactate Sepsis w/Reflex* 1.4 mmol/L (0.5-1.9)
[2023-06-17 00:14] LABS: Albumin* 5.4 g/dL (3.3-5.0); Basophils Percent Auto 0.5 % (0.0-3.0); Eosinophils Percent Auto 5.4 % (0.0-7.0); Hematocrit 39.8 % (33.0-51.0); Hemoglobin* 13.7 gm/dL (12.0-16.0); Immature Granulocytes Pct Auto 0.5 %; Lymphocytes Percent Auto 26.1 % (20-44); Mean Corpuscular HGB Conc 34 gm/dL (32-36); Mean Corpuscular Hemoglobin 31 pg (26-34); Mean Corpuscular Volume 90 fL (80-100); Monocytes Percent Auto 8.6 % (0.0-11.0); Neutrophils Percent Auto 58.9 % (42.0-72.0); Platelet Count* 200 K/uL (140-440); RDW Coefficient of Variation % 11.8 % (11.5-15.5); Red Blood Count 4.44 m/uL (4.00-5.20); White Blood Count* 4.44 K/uL (4.50-11.00)
[2023-06-17 00:15] LABS: Chloride* 103 mmol/L (96-114); Sodium* 139 mmol/L (135-149)
[2023-06-17 00:16] LABS: Slide Review Reflex No
[2023-06-17 00:17] LABS: Alkaline Phosphatase* 67 U/L (40-150); Aspartate Amino Transferase* 257 U/L (12-35); Bilirubin Direct* 0.2 mg/dL (0.0-0.5); Bilirubin Total* 0.5 mg/dL (0.1-1.5); Lipase* 73 U/L (23-300); Total Protein* 8.6 g/dL (6.0-8.3)
[2023-06-17 00:18] LABS: Alanine Aminotransferase* 119 U/L (4-35); Creatinine* 0.6 mg/dL (0.5-1.5); Estimated Glomerular Filt Rate 105 ml/min
[2023-06-17 00:19] LABS: Anion Gap 13 mEq/L (7-15); Blood Urea Nitrogen* 14 mg/dL (7-30); Calcium* 9.6 mg/dL (8.4-10.6); Carbon Dioxide* 23 mmol/L (20-32); Glucose* 111 mg/dL (60-115)
[2023-06-17 00:22] LABS: C Reactive Protein* 0.5 mg/dL (0.5-1.0)
[2023-06-17] MEDS: OMEPRAZOLE 20 MG CAPSULE DR PO (01:16)
== END 2023-06-17 01:26 | disposition home or self-care (01) ==
PROVIDERS: Emergency Provider Emergency Medicine; PCP Family Medicine
DX: K29.70 Gastritis, unspecified, without bleeding (principal)
CPT/HCPCS: 36415; 74177; 80048; 80076; 83605; 83690; 84484; 85025; 86140; 93005; 99284; 99285; A9270; Q9967